=== PATIENT | female | born 1980 | race Caucasian/White ===

== ENCOUNTER → 2017-11-18 13:38 | Outpatient (CLI) | payer BC, SELFPAY ==
--- NOTE | 2017-11-18 13:39 | US_ITS ---
US transvaginal HISTORY: ITS.REASON: Left lower quadrant PAIN ORDERING PHYSICIAN: Bayron Mcintosh MD PATIENT AGE: 37 years Comparison: None FINDINGS: The uterus has an unremarkable appearance measuring 8 x 4 x 5 cm with a combined endometrial thickness of 7 mm. There are small nabothian cyst present. There is an IUD present within the endometrium in the fundal area with shadowing as expected. No uterine mass apparent. The left ovary is 2.4 x 1.4 cm contain a few small follicles. The right ovary is 3.8 x 1.7 cm also containing a few small follicles. No dominant cyst apparent. No cul-de-sac fluid. IMPRESSION: IUD in place. Small nabothian cyst and small bilateral ovarian follicles. Essentially unremarkable pelvic ultrasound
== END ==
PROVIDERS: Family Provider Nurse Practitioner; PCP Family Medicine; Visit Provider Family Medicine
DX: R10.31 Right lower quadrant pain (principal); N95.1 Menopausal and female climacteric states
CPT/HCPCS: 76830

== ENCOUNTER → 2017-12-08 08:38 | Outpatient (CLI) | payer BC, SELFPAY ==
--- NOTE | 2017-12-08 08:53 | CT_ITS ---
CT abdomen pelvis w con CLINICAL INDICATION: Right lower quadrant pain, right upper quadrant pain, right lower quadrant tenderness ITS.REASON: RT LOWER QUAD PAIN,PERIMENOPAUSAL ORDERING PHYSICIAN: Bayron Mcintosh MD PATIENT AGE: 37 years COMPARISON: 03/12/2016 TECHNIQUE: Axial images obtained with sagittal and coronal reformats. All CT scans at the facility use one or more dose reduction, viz: automated exposure control, ma/kV adjustment per patient size (including targeted exams where dose is matched to indication, i.e. head), or iterative reconstruction technique. PROCEDURE: Oral Contrast: None IV Contrast: 75 mL's of Isovue-370. FINDINGS: No acute finding in the lung bases. The liver, spleen, adrenal glands, and pancreas are unremarkable. There has been a prior cholecystectomy. No renal or ureteral calculi. No hydronephrosis or renal mass. There are a few small mesenteric lymph nodes which are nonspecific. There has been prior appendectomy. No intestinal obstruction or free air. No evidence of diverticulitis. There is an IUD in place. The cervix has a somewhat prominent appearance. Correlation with physical exam needed. No acute bony anomalies. IMPRESSION: 1. No acute abdominal or pelvic findings. 2. IUD in place. Mild prominence of the cervix. 3. Otherwise negative CT abdomen pelvis
== END ==
PROVIDERS: Family Provider Nurse Practitioner; PCP Family Medicine; Visit Provider Family Medicine
DX: R10.31 Right lower quadrant pain (principal); N95.1 Menopausal and female climacteric states
CPT/HCPCS: 74177; Q9967

== ENCOUNTER → 2018-04-05 16:53 | Outpatient (CLI) | payer BC, SELFPAY ==
[2018-04-05 19:19] LABS: Free Thyroxine Index 2.5 ug/dL (5.93-13.13); T4 (Thyroxine) 8.2 ug/dl (4.7-13.3); Thyroid Stimulating Hormone 2.34 uIU/ml (0.358-3.740); Triiodothryronine (T3) Uptake 31 % (31-39)
[2018-04-07 14:16] LABS: Triiodothyronine (T3) Free 2.8 pg/mL (2.0-4.4); Vitamin D 25 Hydroxy 34.2 ng/mL (30.0-100.0)
[2018-04-07 14:17] LABS: FSH 7.6 mIU/mL (.)
== END ==
PROVIDERS: Visit Provider Nurse Practitioner Obstetrics & Gynecology
DX: N92.0 Excessive and frequent menstruation with regular cycle (principal); N92.6 Irregular menstruation, unspecified; R10.2 Pelvic and perineal pain; R53.82 Chronic fatigue, unspecified
CPT/HCPCS: 36415; 82652; 82670; 83001; 83002; 84436; 84443; 84479; 84481

== ENCOUNTER → 2018-05-14 08:40 | Outpatient (CLI) | payer BC, SELFPAY ==
[2018-05-13 18:20] LABS: Basophils # 0.1 K/mm3 (0-0.2); Basophils % 0.8 % (0.1-2.0); Eosinophils # 0.2 K/mm3 (0.0-0.4); Eosinophils % 1.8 % (0.1-12.0); Hematocrit 42.3 % (37.0-47.0); Hemoglobin 13.4 g/dL (12.2-16.2); Lymphocytes % 27.5 % (10-50); Mean Corpuscular HGB Conc 31.7 g/dL (31.8-35.4); Mean Corpuscular Hemoglobin 28.6 pg (27.0-31.2); Mean Platelet Volume 7.4 fl (7.4-10.4); Monocytes # 0.4 K/mm3 (0.1-1.0); Monocytes % 4.1 % (1.7-9.3); Neutrophils # 7.2 K/mm3 (1.8-7.8); Neutrophils % 65.9 % (37.0-80.0); Platelet Count 387 K/mm3 (142-424); Red Cell Distribution Width 13.1 % (11.5-17.5); White Blood Count 10.9 K/mm3 (4.8-10.8)
[2018-05-13 19:13] LABS: HCG Qualitative, Serum Negative (Negative)
[2018-05-13 19:17] LABS: Anion Gap 15.2 mEq/L (5-15); Blood Urea Nitrogen 17 mg/dL (7-18); Calcium 9.1 mg/dL (8.5-10.1); Carbon Dioxide 24 mmol/L (21.0-32.0); Chloride 103 mmol/L (98-107); Creatinine,Serum 0.87 mg/dL (0.55-1.02); Estimated Glomerular Filt Rate 72 ml/min (>60); GFR (African American) 88 ML/MIN (>60); Glucose 98 mg/dL (74-106); Potassium 4.2 mmoL/L (3.5-5.1); Sodium 138 mmol/L (136-145)
== END ==
PROVIDERS: Visit Provider Nurse Practitioner Obstetrics & Gynecology
DX: Z01.818 Encounter for other preprocedural examination (principal)
CPT/HCPCS: 36415; 80048; 84703; 85025

== ENCOUNTER → 2018-05-31 16:33 | Outpatient (CLI) | payer BC, SELFPAY ==
[2018-06-02 07:46] LABS: Triiodothyronine (T3) Free 2.5 pg/mL (2.0-4.4)
[2018-06-03 07:46] LABS: Estradiol 147.1 pg/mL (.); FSH 4.5 mIU/mL (.); LH 11.1 mIU/mL (.)
== END ==
PROVIDERS: Visit Provider Nurse Practitioner Obstetrics & Gynecology
DX: E03.9 Hypothyroidism, unspecified (principal); N95.1 Menopausal and female climacteric states
CPT/HCPCS: 36415; 82670; 83001; 83002; 84481

== ENCOUNTER → 2018-12-07 16:59 | Outpatient (CLI) | payer BC, SELFPAY | PROVIDERS: Visit Provider Nurse Practitioner Obstetrics & Gynecology | DX: Z01.419 Encounter for gynecological examination (general) (routine) without abnormal findings (principal) | CPT/HCPCS: 87086; 87088; 87186 ==

== ENCOUNTER → 2019-10-21 10:13 | Outpatient (CLI) | payer BC, SELFPAY ==
[2019-10-21 10:53] LABS: Basophils # 0.1 K/mm3 (0-0.2); Eosinophils # 0.1 K/mm3 (0.0-0.4); Eosinophils % 1.7 % (0.1-12.0); Hematocrit 42.9 % (37.0-47.0); Hemoglobin 14.6 g/dL (12.2-16.2); Lymphocytes # 2.5 K/mm3 (0.7-4.5); Lymphocytes % 28.9 % (10-50); Mean Corpuscular Hemoglobin 30.1 pg (27.0-31.2); Mean Corpuscular Volume 88.4 fl (81-99); Mean Platelet Volume 7.2 fl (7.4-10.4); Monocytes # 0.3 K/mm3 (0.1-1.0); Monocytes % 3.6 % (1.7-9.3); Neutrophils # 5.6 K/mm3 (1.8-7.8); Neutrophils % 64.8 % (37.0-80.0); Platelet Count 400 K/mm3 (142-424); Red Blood Count 4.86 M/mm3 (4.20-5.40); Red Cell Distribution Width 12.9 % (11.5-17.5); White Blood Count 8.6 K/mm3 (4.8-10.8)
[2019-10-21 11:50] LABS: Alanine Aminotransferase 38 U/L (12-78); Albumin Level 4.7 g/dl (3.5-5.0); Albumin/Globulin Ratio 1.6 (1.1-1.8); Alkaline Phosphatase 81 U/L (38-126); Anion Gap 13.5 mEq/L (5-15); Aspartate Amino Transferase 34 U/L (14-36); Bilirubin,Total 0.4 mg/dl (0.2-1.3); Blood Urea Nitrogen 12 mg/dl (7-17); Calcium 9.4 mg/dl (8.4-10.2); Carbon Dioxide 26 mmol/L (22.0-30.0); Chloride 100 mmol/L (98-107); Chol/HDL Ratio 5.5 (1-3.5); Cholesterol 240 mg/dl (140-200); Estimated Glomerular Filt Rate 69 ml/min (>60); GFR (African American) 84 ML/MIN (>60); Globulin 2.9 g/dL (1.3-3.2); Glucose 94 mg/dl (74-100); HDL Cholesterol 44 mg/dl (40-60); Potassium 4.5 mmoL/L (3.5-5.1); Sodium 135 mmol/L (136-145); Total Protein,Serum 7.6 g/dl (6.3-8.2); Triglycerides 158 mg/dl (30-150); VLDL Cholesterol 32 mg/dL (0-40)
[2019-10-21 12:07] LABS: Free Thyroxine Index 3.1 ug/dL (5.93-13.13); T4 (Thyroxine) 10.3 ug/dl (5.53-11.0); Triiodothryronine (T3) Uptake 30 % (23.5-40.5)
[2019-10-21 12:21] LABS: Thyroid Stimulating Hormone 0.99 uIU/mL (0.465-4.68)
[2019-10-22 06:13] LABS: Estradiol 34.9 pg/mL (.); FSH 8.8 mIU/mL (.); LH 6.6 mIU/mL (.); Triiodothyronine (T3) Free 5.1 pg/mL (2.0-4.4)
[2019-10-27 11:15] LABS: 1,25 Dihydroxy Vitamin D 72 pg/mL (.); 1,25-Dihydroxy, Vitamin D-2 <10 pg/mL (.); 1,25-Dihydroxy, Vitamin D-3 72 pg/mL (.)
== END ==
PROVIDERS: Visit Provider Nurse Practitioner Obstetrics & Gynecology
DX: R63.5 Abnormal weight gain (principal); F48.8 Other specified nonpsychotic mental disorders; G47.00 Insomnia, unspecified
CPT/HCPCS: 36415; 80053; 80061; 82652; 82670; 83001; 83002; 84436; 84443; 84479; 84481; 85025

== ENCOUNTER → 2019-11-28 12:14 | Outpatient (CLI) | payer BC, SELFPAY | PROVIDERS: PCP Family Medicine; Referring Provider Nurse Practitioner; Visit Provider Family Medicine | DX: Z03.818 Encounter for observation for suspected exposure to other biological agents ruled out (principal) | CPT/HCPCS: U0003 ==

== ENCOUNTER → 2020-06-19 17:44 | Outpatient (CLI) | payer BC, SELFPAY ==
[2020-06-19 19:22] LABS: Free Thyroxine Index 2.6 ug/dL (5.93-13.13); T4 (Thyroxine) 8.4 ug/dl (5.53-11.0); Triiodothryronine (T3) Uptake 31 % (23.5-40.5)
[2020-06-19 19:36] LABS: Thyroid Stimulating Hormone 2.17 uIU/mL (0.465-4.68)
[2020-06-21 15:17] LABS: Estradiol 77.7 pg/mL (.); FSH 12.8 mIU/mL (.); LH 31.8 mIU/mL (.)
== END ==
PROVIDERS: Visit Provider Nurse Practitioner Obstetrics & Gynecology
DX: R53.82 Chronic fatigue, unspecified (principal); N95.1 Menopausal and female climacteric states
CPT/HCPCS: 36415; 82670; 83001; 83002; 84436; 84443; 84479

== ENCOUNTER → 2020-07-17 06:00 | Outpatient (CLI) | payer BC, SELFPAY ==
[2020-07-17 07:00] LABS: Basophils # 0.1 K/mm3 (0-0.2); Basophils % 0.9 % (0.1-2.0); Eosinophils # 0.2 K/mm3 (0.0-0.4); Eosinophils % 2.2 % (0.1-12.0); Hematocrit 42.6 % (37.0-47.0); Hemoglobin 13.9 g/dL (12.2-16.2); Lymphocytes # 2.5 K/mm3 (0.7-4.5); Lymphocytes % 23.9 % (10-50); Mean Corpuscular HGB Conc 32.6 g/dL (31.8-35.4); Mean Corpuscular Hemoglobin 28.9 pg (27.0-31.2); Mean Corpuscular Volume 88.5 fl (81-99); Mean Platelet Volume 7.3 fl (7.4-10.4); Monocytes # 0.6 K/mm3 (0.1-1.0); Monocytes % 5.3 % (1.7-9.3); Neutrophils # 7.1 K/mm3 (1.8-7.8); Neutrophils % 67.8 % (37.0-80.0); Platelet Count 401 K/mm3 (142-424); Red Blood Count 4.81 M/mm3 (4.20-5.40); Red Cell Distribution Width 12.8 % (11.5-17.5); White Blood Count 10.4 K/mm3 (4.8-10.8)
[2020-07-17 07:30] LABS: HCG Qualitative, Serum Negative (Negative)
[2020-07-17 07:32] LABS: Anion Gap 13.6 mEq/L (5-15); Blood Urea Nitrogen 15 mg/dl (7-17); Calcium 9.4 mg/dl (8.4-10.2); Carbon Dioxide 26 mmol/L (22.0-30.0); Chloride 102 mmol/L (98-107); Estimated Glomerular Filt Rate 79 ml/min (>60); GFR (African American) 96 ML/MIN (>60); Glucose 108 mg/dl (74-100); Potassium 4.6 mmoL/L (3.5-5.1); Sodium 137 mmol/L (136-145)
== END ==
PROVIDERS: PCP Family Medicine; Visit Provider Nurse Practitioner Obstetrics & Gynecology
DX: Z01.818 Encounter for other preprocedural examination (principal); Z20.822 Contact with and (suspected) exposure to COVID-19; R10.2 Pelvic and perineal pain; N92.0 Excessive and frequent menstruation with regular cycle
CPT/HCPCS: 36415; 80048; 84703; 85025; U0003

== ENCOUNTER 2020-07-18 06:10 | Observation (INO) | payer BC, SELFPAY ==
[2020-07-11 13:32] VITALS: BMI 32.2
[2020-07-18] VITALS (25 sets, daily range): BP systolic 108–143; BP diastolic 74–97; PULSE 78–126; RESP 12–18; TEMP 36.4–42.7; O2SAT 94–100
--- NOTE | 2020-07-18 09:46 | HMH.OPNOTE ---
Date of procedure: 07/18/20 Pre-op Diagnosis:: Pelvic pain, dyspareunia, severe dysmenorrhea, menorrhagia Post-op Diagnosis:: Pelvic pain, dyspareunia, severe dysmenorrhea, menorrhagia Procedure performed:: Laparoscopically assisted vaginal hysterectomy, bilateral salpingectomy Surgeon:: Joe Nelson MD Security Installation Sales Technician(s):: Eva Fernandez AUGER PRESS OPERATOR:: Other (Artur Guerrero) Anesthesia: GETA Estimated blood loss (mL): 250 Clinical Note:: She is a 40-year-old lady who complains of severe dysmenorrhea. She has disabling pain with her periods. She has painful intercourse as well. I suspect she has adenomyosis. After having discussed the risk and benefits we elected perform a laparoscopically assisted vaginal hysterectomy and bilateral salpingectomy. Operative findings:: She had an anteverted slightly bulky uterus. Tubes had previously been ligated. Ovaries look normal. At the left side of her uterus near the cornua there were some powder león possibly consistent with endometriosis. The ovaries appeared normal. The rest of the pelvis and upper abdomen appeared normal. Operative note:: She was taken to the operating room where general anesthesia was found be adequate. She was prepped and draped in normal sterile fashion in the semilithotomy position. A weighted speculum was placed in the vagina and the anterior lip of the cervix was grasped with a tenaculum. An acorn uterine manipulator was then placed within the cervical os. I then changed gloves. I injected 10 cc of 0.5% ropivacaine around the umbilicus and made a small incision within the umbilicus. I inserted a Veress needle into the abdominal cavity. The abdominal cavity was then insufflated with carbon dioxide gas to a pressure of 20 mmHg. I then inserted an 11 mm trocar under direct vision. I injected through and through the pubic hairline, made a small incision here and inserted a 5 mm trocar under direct vision. I identified the inferior epigastric arteries on the left side, went lateral to these and injected through and through. I then made a small incision and inserted an 11 mm trocar under direct vision. A similar 11 mm trocar was placed on the right side. The left round ligament was then grasped and cut through with harmonic scalpel. This was followed by opening up the peritoneum anteriorly to the midline. I then grasped the tube on the left side and cut through this. This is followed by cutting through the left utero-ovarian ligament. I used Harmonic scalpel on the coagulation mode. I then took down the posterior aspect of the broad ligament to the level of the uterosacral ligament. I then skeletonized the uterine arteries on the left side and placed hemoclips on these. Using the harmonic scalpel on coagulation mode adjacent to the cervix I then took down these uterine arteries. I then further freed up the bladder anteriorly and laterally on the left side. I then turned my attention to the right side where I grasped the right round ligament. The right tube was adherent to the right pelvic sidewall and using harmonic scalpel I was able to free this up. I then cut through the right round ligament. I then took down the anterior peritoneum to the midline joining up with the other side. I further dissected the bladder off. The posterior aspect of the right broad ligament was then taken down with harmonic scalpel. I skeletonized the uterine arteries on the right side. I applied hemoclips to the uterine arteries and staying adjacent to the cervix on the right side I took down the uterine arteries with harmonic scalpel on coagulation mode. I further freed up the bladder. We then assured hemostasis. I then grasped the distal end of the right tube and using harmonic scalpel I cut along the mesosalpinx. The tube was removed through the 11 mm trocar site. This was only performed on the patient's left side. After once again assuring hemostasis we then turned our attention
[2020-07-18 09:49] LABS: Microscopic,Cath URINE MICROSCOPIC (MICROSCOPIC)
[2020-07-18 10:01] LABS: Appearance,Urine/Cath CLEAR (Clear); Bilirubin,Cath Negative (Negative); Blood, Urine/Cath 1+ (Negative); Color,Urine/Cath YELLOW (Yellow); Glucose,Urine/Cath (UA) Negative (Negative); Ketones,Urine/Cath Negative (Negative); Leukocyte Esterase,Cath Negative (Negative); Nitrate,Cath Negative (Negative); PH,Urine/Cath 5.5 (5.0-8.5); Protein,Urine/Cath Negative (Negative); Specific Gravity, Urine/Cath >= 1.030 (1.005-1.030); Urobilinogen,Cath 0.2 EU/dl (0.2)
--- NOTE | 2020-07-18 10:06 | HMH.HP ---
*Admission Date: 07/18/20 *Chief complaint: Pelvic pain, dysmenorrhea, dyspareunia, menorrhagia *History of present illness: She is a 40-year-old lady who complains of severe pain with her periods. She is completely disabled by her pelvic pain during her periods. She also has pain with intercourse and chronic pelvic pain. Her uterus was exquisitely tender to palpate. I suspect she has adenomyosis. After discussing the risks and benefits of surgery she elected to have a laparoscopically assisted vaginal hysterectomy and bilateral salpingectomy. [facility] History I have reviewed the patient's past medical history: Yes Medical History: Reports:: Anxiety, Asthma, Gastroesophageal Reflux Disease(GERD), Hypertension Denies:: Cancer, Depression, Diabetes Mellitus Type 1, Diabetes Mellitus Type 2, Internal Pacemaker, MRSA, Seizures *Have you ever received a pneumonia vaccine?: No *Have you received a flu vaccine this season?: No Other Medical History: Denies: Blood Transfusion Reaction Other Surgeries: Yes: Appendectomy, Cholecystectomy, Dilation and Curettage, Tubal Ligation. No: Pacemaker Amputation: No Fractures: No - *Social History Last grade of school completed: Advanced degree Smoking Status: Never smoker Alcohol Intake: current Alcohol Intake Frequency:: holidays/special occasions only Substance Use Type: denies use *Occupational Status:: employed Housing: house Household Members: family *Travel in the last 8 weeks: None - Psychiatric History Pschychiatric History:: Reports:: Anxiety Denies:: Depression Family Hx:: Diabetes Review of Systems - Review of Systems Review of systems:: pertinent systems reviewed and negative unless documented below Meds Home Medications Medication Instructions Recorded Confirmed Type lisinopril 20 mg tablet 20 mg PO DAILY 30 Days #30 tab 04/05/18 07/11/20 History montelukast 10 mg tablet 10 mg PO DAILY 30 Days #30 tab 04/05/18 07/11/20 History esomeprazole magnesium 20 mg 20 mg PO DAILY 10/20/19 07/11/20 History capsule,delayed release hydrocodone 7.5 mg-acetaminophen 1 tab PO Q6H PRN #20 tab 07/06/20 07/11/20 Rx 325 mg tablet Ergocalciferol (Vitamin D2) 400 unit PO DAILY 07/11/20 07/11/20 History [Vitamin D2] Magnesium 30 mg PO DAILY 07/11/20 07/11/20 History Allergies Allergy/AdvReac Type Severity Reaction Status Date / Time diatrizoate sodium Allergy Severe passed out Verified 07/09/20 17:18 [From Hypaque] Exam Vital signs and Labs for Last 24 Hours: Temp Pulse Resp BP Pulse Ox 97.7 F 83 18 143/93 H 99 07/18/20 06:48 07/18/20 06:48 07/18/20 06:48 07/18/20 06:48 07/18/20 06:48 Laboratory Results - last 24 hr 07/18/20 08:50: Urine Color Yellow, Urine Appearance Clear, Urine pH 5.5, Ur Specific [place] >= 1.030, Urine Protein Negative, Urine Glucose (UA) Negative, Urine Ketones Negative, Urine Blood 1+, Urine Nitrate Negative, Urine Bilirubin Negative, Urine Urobilinogen 0.2, Ur Leukocyte Esterase Negative - Constitutional no acute distress - *Routine HEENT Exam Head: Present: normocephalic Eye: Present: EOMI, PERRL ENT: Present: mucous membranes moist - *Routine Neck Exam Present: supple, full ROM - *Routine Respiratory Exam Absent: accessory muscle use (good air entry bilaterally), wheezes, crackles - *Routine Cardiovascular Exam Present: RRR. Absent: murmur - *Routine Abdominal Exam Present: soft, normoactive bowel sounds. Absent: tenderness, rebound, guarding, mass - *Routine Rectal Exam Patient deferred: visual exam, digital exam - *Routine Exam Patient deferred: external exam, groin exam, perineal exam - *Routine Extremities Exam Present: full ROM. Absent: cyanosis, edema, calf tenderness - *Routine Skin Exam Present: intact (good color) - *Routine Neurological Exam Present: alert, oriented X3 - Routine Psychiatric Exam Present: normal affect Assessment and Plan (1) Pelvic pain Status: Acute C
[2020-07-18 10:16] LABS: Squamous Epithelial Ur./Cath Occasional #/hpf (0-5)
--- NOTE | 2020-07-18 10:30 | PC.NURSE ---
Report received from Hortencia RICHMOND.
--- NOTE | 2020-07-18 10:45 | PC.NURSE ---
Pt. arrived to room 280 via bed accompanied by 1 visitor and PACU staff x2.
--- NOTE | 2020-07-18 10:57 | HMH.PHAINT ---
MEDICATION RECONCILIATION COMPLETED ON PATIENT USING EXTERNAL FILL HISTORY FROM PHARMACY. -ANTONELLA ROBERTS, DEENAD
--- NOTE | 2020-07-18 12:49 | P.CONPHA_ITS ---
[facility] Pharmacy VTE Monitoring - Patient Demographics Admission date: 07/18/20 Report Date: 07/18/20 Time: 12:49 Allergies/Adverse Reactions: Patient Allergies diatrizoate sodium [From Hypaque] Allergy (Severe, Verified 07/09/20 17:18) passed out Height: 1.52 m Weight: 74.843 kg Patient Problems: Current Active Problems Pelvic pain (Acute) Dysmenorrhea (Acute) Dyspareunia (Acute) Menorrhagia (Acute) - Prophylaxis VTE Prophylaxis Ordered?: Yes Types of VTE Prophylaxis: IPCS Thigh High Location of Applied Device: Bilateral Lower Extremeties
--- NOTE | 2020-07-18 13:10 | P.PN_ITS ---
[facility] Anesthesia Checklist - Patient Identification Patient Identification: Arm Band - Structural Data Admitted From: Home Planned Operative Procedure/s: [facility] with bilat salpingectomy Consent for Planned Operative Procedure(s) Verified: Yes Verified Documents: Surgical Consent, History and Physical - NPO Status Verified Time NPO: 00:00 - Additional verifications Anesthesia Reactions: No Hx Blood Transfusions: No Blood Transfusion Reaction: No - Airway Assessment TMJ Mobility Assessed: Yes Dentition: Good Dentition - Neurological Assessment Level of Consciousness: Awake, Alert - Anesthesia Plan Anesthesia Risk discussed: Yes Anesthesia Plan: Verified ASA Class: II Anesthesia Type: General [facility] History Medical History: Reports:: Anxiety, Asthma, Gastroesophageal Reflux Disease(GERD), Hypertension Denies:: Cancer, Depression, Diabetes Mellitus Type 1, Diabetes Mellitus Type 2, Internal Pacemaker, MRSA, Seizures *Have you ever received a pneumonia vaccine?: No *Have you received a flu vaccine this season?: No Other Medical History: Denies: Blood Transfusion Reaction Anesthesia experience/problems:: None Other Surgeries: Yes: Appendectomy, Cholecystectomy, Dilation and Curettage, Tubal Ligation. No: Pacemaker Amputation: No Fractures: No - *Social History Last grade of school completed: Advanced degree Smoking Status: Never smoker Alcohol Intake: current Alcohol Intake Frequency:: holidays/special occasions only Substance Use Type: denies use *Occupational Status:: employed Housing: house Household Members: family *Travel in the last 8 weeks: None - Psychiatric History Pschychiatric History:: Reports:: Anxiety Denies:: Depression Family Hx:: Diabetes
--- NOTE | 2020-07-18 13:12 | HMH.ANESI ---
[facility] Anesthesia Record Part I Intake, IV Amount: 1,500 Estimated blood loss (mL): 250 Urine output (mL): 50 Blood Pressure: 134/91 SaO2: 94 Pulse Rate: 108 Respiratory Rate: 12 Temperature: 98.6 F Patient is:: Stable Stable to PACU at:: 09:48
[2020-07-18 15:47] LABS: Hematocrit 38.9 % (37.0-47.0); Hemoglobin 13.1 g/dL (12.2-16.2)
--- NOTE | 2020-07-18 18:25 | PC.NURSE ---
Pt. reports pain medication barely helping. nurse offered abd binder as pt. mentioned not wanting to take IV pain medication again. Pt. accepted. ABD binder placed. Pt. reports pain down to 3/10. pt. up to bathroom with standby assist. Pt. voided 250ml. and ambulated bakc to bed, tolerating well. Pt. denies further needs. will continue to monitor.
--- NOTE | 2020-07-18 19:50 | PC.NURSE ---
WITH ASSESSING PT HER B/P 142/96,P-113,R-18,SAT LEVEL WAS 89%,HAD PT TAKE SOME DEEP BREATHES AND HER SAT LEVEL SPIKE TO 94%,T- 98.5,PT ABD.TENDER TO TOUCH AND DISTENDED,PT DENIES PASSING ANY FLATUS ,DENIES ANY NAUSEA NOW.ASKED ABOUT SOME CEREAL AND MILK,SHE SAID MILK GIVES HER GAS,THIS WAS GIVEN.PT HAS A BINDER ON ABD TO HELP WITH PRESSURE AND DISCOMFORT,4 LAP SITES WITH THE ONE ON LEFT SIDE HAS A MOD.AMT SEROUSANG DRAINAGE,SHE ALSO ASKED IF COULD CALL SO WHEN SHE NEEDED SOMETHING FOR PAIN SHE COULD HAVE MAYBE LORTAB,PERCCET GIVE HER A H/A,TOLD HER I WOULD CALL HIM,SHE SAID SHE WAS ALRIGHT NOW PAIN ONLY A 4 ON SCALE OF 1-10
--- NOTE | 2020-07-18 20:05 | PC.NURSE ---
NOTIFIED OF PT ASKING IF SHE COULD HAVE LORTAB INSTEAD OF PERCOCET ,BECAUSE IT DOES NOT WORK FOR HER,GIVES HER A H/A,ORDERED HYDROCODONE 5MG PO EVERY 4 HOURS PRN.ASKED ABOUT SOME MYLICON FOR GAS AND HE ORDERS MYLICON 160MG PO FOR GAS .TOLD HIM ABOUT HER B/P AND PULSE 142/96,P-113.NO ORDERS FOR THIS,SAID SHE MAY NEED TO BE ON A BETA MARI-PRIMARY DOCTOR SHOULD ADDRESS THIS.NO OTHER ORDERS
--- NOTE | 2020-07-18 21:25 | PC.NURSE ---
AFTER HELPING PT TO BATHROOM WITH IV POLE,ASKED HER IF SHE THOUGHT SHE NEEDED THE LORTAB NOW AND SHE SAID NO SHE WOULD WAIT.ASIM.TORADOL BROUGHT PAIN TO TOLERABLE AMT.WAS A 6,NOW 4.PT REPORTED SHE WAS HUNGERY,SO CHICKEN NOODLE SOUP,CRACKERS,JELLO GIVEN.
[2020-07-19 03:00] VITALS: BP 114/67; PULSE 111; RESP 16; TEMP 36.8; O2SAT 97
--- NOTE | 2020-07-19 03:28 | PC.NURSE ---
PT WAS ASLEEP,BUT WAS EASILY AROUSED,ASIM.TORADOL GIVEN.PT REPORTS PAIN A 4 OUT OF A SCALE OF 0-10.B/P WAS 114/67,P-111,R-16,T-98.2,SAT LEVEL 97%.LUNGS CLEAR,RESP.EVEN AND UNLABORED.NO NEW DRAINAGE TO 4 LAP SITES,PT STILL HAS ABD.BINDER ON AND SAYS IT HAS HELPED.POSITIVE BOWEL SOUNDS X4 QUADS.VOIDING WITHOUT DIFF.DENIES PASSING FLATUS,WILL CONTINUE TO MONITOR
--- NOTE | 2020-07-19 06:27 | PC.NURSE ---
LAB AT BEDSIDE TO DRAW BLOOD FOR CBC AND BMP
[2020-07-19 06:48] LABS: Basophils % 0.2 % (0.1-2.0); Eosinophils % 0.2 % (0.1-12.0); Hematocrit 38.3 % (37.0-47.0); Hemoglobin 12.3 g/dL (12.2-16.2); Lymphocytes # 2.7 K/mm3 (0.7-4.5); Lymphocytes % 14.4 % (10-50); Mean Corpuscular Hemoglobin 28.7 pg (27.0-31.2); Mean Corpuscular Volume 89.7 fl (81-99); Mean Platelet Volume 7.4 fl (7.4-10.4); Monocytes % 5.4 % (1.7-9.3); Neutrophils # 14.8 K/mm3 (1.8-7.8); Neutrophils % 79.7 % (37.0-80.0); Platelet Count 377 K/mm3 (142-424); Red Blood Count 4.27 M/mm3 (4.20-5.40); Red Cell Distribution Width 12.9 % (11.5-17.5); White Blood Count 18.6 K/mm3 (4.8-10.8)
[2020-07-19 06:49] LABS: Chloride 109 mmol/L (98-107); Potassium 4.4 mmoL/L (3.5-5.1); Sodium 139 mmol/L (136-145)
[2020-07-19 06:52] LABS: Blood Urea Nitrogen 9 mg/dl (7-17); Creatinine Clearance Estimated 125 mL/min (50-200); Estimated Glomerular Filt Rate 92 ml/min (>60); GFR (African American) 112 ML/MIN (>60)
[2020-07-19 06:53] LABS: Anion Gap 9.4 mEq/L (5-15); Calcium 8.8 mg/dl (8.4-10.2); Carbon Dioxide 25 mmol/L (22.0-30.0); Glucose 108 mg/dl (74-100)
--- NOTE | 2020-07-19 06:58 | PC.NURSE ---
BREAKFAST TRAY SETUP.NO NEEDS OR CONCERNS VOICED
[2020-07-19 07:00] LABS: MANUAL DIFFERENTIAL MANUAL DIFFERENTIAL (MANUAL DIFF)
[2020-07-19 08:00] VITALS: PULSE 112; O2SAT 100
[2020-07-19 08:21] VITALS: BP 120/87; PULSE 108; PULSE 112; RESP 18; TEMP 37.2; O2SAT 99
--- NOTE | 2020-07-19 08:35 | HMH.DCSUM ---
General - General Admission date:: 07/18/20 Discharge date: 07/19/20 HPI HPI: She is a 40-year-old lady who complains of severe pain with her periods. She is completely disabled by her pelvic pain during her periods. She also has pain with intercourse and chronic pelvic pain. Her uterus was exquisitely tender to palpate. I suspect she has adenomyosis. After discussing the risks and benefits of surgery she elected to have a laparoscopically assisted vaginal hysterectomy and bilateral salpingectomy. Hospital Course Hospital Course: On July 19, 2019 when she underwent a laparoscopic-assisted vaginal hysterectomy and bilateral salpingectomy. She has done well postoperatively and has remained afebrile throughout her hospitalization. Her hemoglobin has stabilized. She is eating and drinking and ambulating. Her pain is well controlled with just Toradol and Tylenol. While hospitalized her blood pressure has been slightly elevated and she is slightly tachycardic with a heart rate of 110-120. I spoke with Dr. Mcintosh and he suggested we start Coreg 6.25 mg twice daily. We will send her home with this. She will follow up with Dr. Mcintosh in a week's time. She will continue with her lisinopril. She will be discharged home today to follow-up with me in approximately 2 weeks time. She will continue with her home medications. She will start her new medication. She is not taking any narcotics and she does have a prescription of hydrocodone that I gave her a couple of weeks ago. She will be given a prescription for the Coreg as well as Toradol. She will take Tylenol as well. She was given the usual instructions with respect to limiting her activity, driving and sexual activity. Her condition on discharge is stable and improved. Objective Vital signs: Temp Pulse Resp BP Pulse Ox 99.0 F 108 H 18 120/87 99 07/19/20 08:21 07/19/20 08:21 07/19/20 08:21 07/19/20 08:21 07/19/20 08:21 no acute distress - *Routine HEENT Exam Head: Present: normocephalic Eye: Present: EOMI, PERRL ENT: Present: mucous membranes moist - *Routine Neck Exam Present: supple - *Routine Respiratory Exam Present: CTA bilaterally - *Routine Cardiovascular Exam Present: RRR - *Routine Abdominal Exam Present: soft, normoactive bowel sounds. Absent: tenderness Comments: Her incisions are clean and dry. - *Routine Extremities Exam Absent: cyanosis, clubbing, edema - *Routine Skin Exam Present: warm. Absent: rash - Detailed Eye Exam Eyelids: Bilateral normal inspection Results Labs on day of discharge: Labs from last 24 hours 07/19/20 07/19/20 07/18/20 06:31 06:31 15:40 WBC 18.6 H D RBC 4.27 Hgb 12.3 13.1 Hct 38.3 38.9 MCV 89.7 MCH 28.7 MCHC 32.0 RDW 12.9 Plt Count 377 MPV 7.4 Neut % (Auto) 79.7 Lymph % (Auto) 14.4 [place] % (Auto) 5.4 Eos % (Auto) 0.2 Baso % (Auto) 0.2 Neut # (Auto) 14.8 H Lymph # (Auto) 2.7 [place] # (Auto) 1.0 Eos # (Auto) 0.0 Baso # (Auto) 0.0 Sodium 139 Potassium 4.4 Chloride 109 H Carbon Dioxide 25 Anion Gap 9.4 BUN 9 D Creatinine 0.70 Estimated Creat Clear 125 Estimated GFR 92 Est GFR ( Amer) 112 Glucose 108 H Calcium 8.8 Urine Color Urine Appearance Urine pH Ur Specific [employer] Urine Protein Urine Glucose (UA) Urine Ketones Urine Blood Urine Nitrate Urine Bilirubin Urine Urobilinogen Ur Leukocyte Esterase Urine RBC Urine WBC Ur Squamous Epith Cells Urine Bacteria 07/18/20 08:50 WBC RBC Hgb Hct MCV MCH MCHC RDW Plt Count MPV Neut % (Auto) Lymph % (Auto) [place] % (Auto) Eos % (Auto) Baso % (Auto) Neut # (Auto) Lymph # (Auto) [place] # (Auto) Eos # (Auto) Baso # (Auto) Sodium Potassium Chloride Carbon Dioxide Anion Gap BUN Creatinine Estimated Creat Clear Estimat
[2020-07-19 09:17] LABS: Lymphocytes % 16 % (10-50); Monocytes % 6 % (2-9); Neutrophils % 78 % (42-76); Platelet Estimate Normal; RBC Morphology Normal; Total Cells Counted 100
[2020-07-19 10:00] VITALS: PULSE 89
--- NOTE | 2020-07-19 10:25 | PC.NURSE ---
Discharge education provided. Questions encouraged and answered. Pt. v/u. IV removed from RFA 2x2 with [address]. Nurse educated pt. on coban and bleeding. Pt. v/u.
--- NOTE | 2020-07-19 10:30 | PC.NURSE ---
Pt. left unit ambulatory per pt. request. Pt. accompanied by friend and staff x1.
--- NOTE | 2020-07-19 13:16 | HMH.ANESII ---
[facility] Anesthesia Record Part II Discharge Time: 10:08 Destination: floor PACU nurse assessment reviewed?: Yes Patient Condition:: Good Anesthesia Complications:: None Swallowing reflex intact?: Yes Cyanosis?: No Blood Pressure: 129/85 Pulse Rate: 86 Temperature: 98.3 F Mental Status: Alert & Oriented Pain level:: 0 Nausea and/or vomitting:: None Intake, IV Amount: 1,500
[2020-07-19 13:19] VITALS: BP 129/85; PULSE 86; TEMP 36.8
== END 2020-07-19 10:30 | disposition home or self-care (01) ==
LOC: OB 06:11
PROVIDERS: Admitting Provider Nurse Practitioner Obstetrics & Gynecology; PCP Family Medicine; Visit Provider Nurse Practitioner Obstetrics & Gynecology
PROC: 0UT9FZZ Resection of Uterus, Via Natural or Artificial Opening With Percutaneous Endoscopic Assistance (ICD-10-PCS; CPT 58552; principal; 2020-07-18 07:30)
DX: N94.6 Dysmenorrhea, unspecified (principal); R10.2 Pelvic and perineal pain; N94.10 Unspecified dyspareunia; N92.0 Excessive and frequent menstruation with regular cycle; Z79.899 Other long term (current) drug therapy
CPT/HCPCS: 58552; 36415; 80048; 81001; 85007; 85014; 85018; 85025; 96374; G0378; J2405; J2710

== ENCOUNTER 2020-12-23 10:39 | Emergency (ER) | payer BC, SELFPAY ==
[2020-12-23 10:50] VITALS: BP 130/90; PULSE 82; RESP 18; TEMP 37; O2SAT 98; BMI 29.5
--- NOTE | 2020-12-23 11:15 | HMH.EDUTC ---
[facility] Disposition Clinical Impression: COVID-19 virus test result unknown, Upper respiratory infection, viral Disposition: Home, Self-Care Condition on Discharge: Good Instructions: DI for COVID-19 (Suspected or Confirmed ), COVID-19: Protecting Yourself When You're at High Risk Additional Instructions: covid swab was sent to lab, call later today for results. self isolate until test results are known to be negative No sign of a bacterial infection. Likely viral. Viruses can take 7-14 days to run their course. Nasal saline and bulb syringe or nose Jaylene to remove nasal drainage to help with nasal congestion. Hard to eat, drink, sleep with nasal congestion so important to keep this cleaned out. Monitor temp. Tylenol or Motrin as needed for pain or fever Encourage fluids, water, Gatorade, Powerade, Pedialyte if infant/toddler/child Warm salt water gargles Warm fluids Sore throat lozenges Sleep elevated Humidifier/vaporizer Follow-up immediately for new or worsening symptoms or no noticeable improvement over the next 48-72 hours. Referrals: Bayron Mcintosh MD [Primary Care Provider] - Time of Disposition: 11:20 Medical Decision Making - Simón Inquiry Pt receiving controlled substance: No Vital Signs: 12/23/20 10:50 Temperature 98.6 F Temperature Source Oral Pulse Rate [Right Brachial] 82 Respiratory Rate 18 Blood Pressure [Right Arm] 130/90 Blood Pressure Mean [Right Arm] 103 Blood Pressure Source [Right Arm] Automatic Cuff Blood Pressure Position [Right Arm] Sitting 02 Sat by Pulse Oximetry 98 Oxygen Delivery Method Room Air Orders (Tests/Meds): ORDERS Category Date Time Status Covid-19 Nasal PCR ([facility]) Routine Lab 12/23/20 10:41 Ordered [facility] HPI - General Chief complaint: Urgent [facility] Stated complaint: covid symtoms Time Seen by Provider: 12/23/20 11:15 Mode of Arrival: Ambulatory Source of Information: Patient Limitations: No Limitations Description of Symptoms (Recalled from Triage Doc. by RN): COVID TEST D/T EXPOSURE. C/O SORE THROAT, COUGH, AND LOSS OF TASTE AND SMELL SINCE LAST NIGHT. HEENT Symptoms (Recalled from RN notes): Yes Resp Symptoms (Recalled from RN notes): Yes Skin Symptoms (Recalled from RN notes): No MS Symptoms (Recalled from RN notes): No Functional Status (Recalled from RN notes): WNL - History of Present Illness Provider Complaint: 40 yr old female presents for covid test. positive for covid. pt states sore throat,cough,and loss of taste ans smell since last pm. - Related Data Home Medications Medication Instructions Recorded Confirmed Ergocalciferol (Vitamin D2) 400 unit PO DAILY 07/11/20 08/27/20 [Vitamin D2] Magnesium 30 mg PO DAILY 07/11/20 08/27/20 Esomeprazole Magnesium [Nexium] 40 mg PO DAILY 07/18/20 08/27/20 Hydrocodone/Acetaminophen 1 tab PO Q6HP PRN 07/18/20 08/27/20 [Hydrocodone-Acetamin 7.5-325] Montelukast Sodium [Singulair 10mg 10 mg PO PM 07/18/20 08/27/20 tablet] lisinopriL [Zestril 20mg tab] 20 mg PO DAILY 07/18/20 08/27/20 carvedilol 12.5 mg tablet 12.5 mg PO tab 08/27/20 08/27/20 Previous Rx's Medication Instructions Recorded Ketorolac Tromethamine [Toradol 10 mg PO Q6H 5 Days #20 tab 07/19/20 10mg tablet] Allergies Allergy/AdvReac Type Severity Reaction Status Date / Time diatrizoate sodium Allergy Severe passed out Verified 08/02/20 10:27 [From Hypaque] - Worker's Comp Is this a Worker's Comp case?: No [facility] History - Hepatitis A Screen Drug use history?: No High risk sexual behaviors?: No History of sexually transmitted infection?: No Currently employed?: No Childcare worker?: No Do you have indoor plumbing?: Yes Do you have electricity?: Yes Attestation statement:: This patient has been screened for Hepatitis A risk factors. I have reviewed the patient's past medical history: Yes Medical History: Reports:: Anxiety, Asthma, Gastroesophageal Reflux Disease(
[2020-12-23 11:26] VITALS: BP 130/90; PULSE 82; RESP 18; TEMP 37; O2SAT 98
== END 2020-12-23 11:27 | disposition home or self-care (01) ==
PROVIDERS: Emergency Provider Nurse Practitioner Family; PCP Family Medicine
DX: U07.1 COVID-19 (principal)
CPT/HCPCS: 99202; G0463; U0003

== ENCOUNTER 2021-05-13 09:24 | Emergency (ER) | payer BC, SELFPAY ==
[2021-05-13 11:00] VITALS: BP 129/85; PULSE 100; RESP 16; TEMP 36.8; O2SAT 98; BMI 31.8
[2021-05-13 11:28] VITALS: BP 129/85; PULSE 100; RESP 18; TEMP 36.8
== END 2021-05-13 11:30 | disposition left against medical advice (07) ==
PROVIDERS: Emergency Provider Nurse Practitioner Family; PCP Family Medicine
DX: Z53.21 Procedure and treatment not carried out due to patient leaving prior to being seen by health care provider (principal)
CPT/HCPCS: C9803; U0003; U0005

== ENCOUNTER → 2021-09-13 08:24 | Outpatient (CLI) | payer BC, SELFPAY ==
--- NOTE | 2021-09-13 08:24 | MM_ITS ---
PROCEDURE INFORMATION: Exam: MG Bilateral Screening 3D Mammography Exam date and time: 09/13/2021 9:57 AM Age: 41 years old Clinical indication: Screening examination; Additional info: Baseline routine screening mammogram TECHNIQUE: Imaging protocol: Bilateral Screening tomosynthesis and 2D mammography including computer-aided detection (CAD) when performed. COMPARISON: No relevant prior studies available. FINDINGS: MAMMOGRAPHY: Breast composition: There are scattered areas of fibroglandular density. Mass: No suspicious masses. Architectural distortion: No suspicious distortion. Calcifications: No suspicious calcifications. Asymmetric density: None. Skin thickening: None. Axillary adenopathy: None. IMPRESSION: No mammographic evidence of malignancy. Annual screening is recommended unless otherwise clinically indicated. ASSESSMENT: BI-RADS Category 1: Negative
== END ==
PROVIDERS: PCP Family Medicine; Visit Provider Nurse Practitioner Obstetrics & Gynecology
DX: Z12.31 Encounter for screening mammogram for malignant neoplasm of breast (principal)
CPT/HCPCS: 77063; 77067

== ENCOUNTER 2023-11-04 10:01 | Outpatient (CLI) | payer BC, SELFPAY ==
--- NOTE | 2023-11-04 10:09 | MM_ITS ---
PROCEDURE INFORMATION: Exam: MG Bilateral Screening 3D Mammography Exam date and time: 11/04/2023 9:54 AM Age: 43 years old Clinical indication: Screening mammogram TECHNIQUE: Imaging protocol: Bilateral Screening tomosynthesis and 2D mammography including computer-aided detection (CAD) when performed. COMPARISON: MG MM DIG SCREENING MAMM BI W/CAD 09/13/2021 9:57 AM FINDINGS: MAMMOGRAPHY: Breast composition: There are scattered areas of fibroglandular density. Mass: None. Architectural distortion: No new or suspicious architectural distortion. Calcifications: No new or suspicious calcifications are present Asymmetric density: No new or suspicious asymmetric density is present Skin thickening: None. Axillary adenopathy: None. IMPRESSION: No mammographic evidence of malignancy. Recommend annual screening mammography unless otherwise clinically indicated. ASSESSMENT: BI-RADS category 1: Negative.
[2023-11-04 11:07] LABS: Alanine Aminotransferase 32 U/L (12-78); Albumin Level 4.2 g/dl (3.5-5.0); Albumin/Globulin Ratio 1.6 (1.1-1.8); Alkaline Phosphatase 52 U/L (38-126); Anion Gap 10.9 mEq/L (5-15); Aspartate Amino Transferase 26 U/L (14-36); Bilirubin,Total 0.4 mg/dl (0.2-1.3); Blood Urea Nitrogen 12 mg/dl (7-17); Calcium 9.2 mg/dl (8.4-10.2); Carbon Dioxide 30 mmol/L (22.0-30.0); Chloride 100 mmol/L (98-107); Estimated Glomerular Filt Rate 91 ml/min (>60); GFR (African American) 110 ML/MIN (>60); Globulin 2.6 g/dL (1.3-3.2); Glucose 104 mg/dl (74-100); Potassium 3.9 mmoL/L (3.5-5.1); Sodium 137 mmol/L (136-145); Total Protein,Serum 6.8 g/dl (6.3-8.2)
== END 2023-11-04 23:59 | disposition home or self-care (01) ==
LOC: RAD 10:02
PROVIDERS: PCP Family Medicine; Visit Provider Nurse Practitioner Obstetrics & Gynecology
DX: Z12.31 Encounter for screening mammogram for malignant neoplasm of breast (principal); I10 Essential (primary) hypertension; Z13.220 Encounter for screening for lipoid disorders; Z13.1 Encounter for screening for diabetes mellitus
CPT/HCPCS: 36415; 77063; 77067; 80053

== ENCOUNTER 2023-11-04 12:18 | Outpatient (CLI) | payer BC, SELFPAY | END 2023-11-05 23:59 | disposition home or self-care (01) | PROVIDERS: PCP Family Medicine; Visit Provider Nurse Practitioner Obstetrics & Gynecology | DX: R32 Unspecified urinary incontinence (principal) | CPT/HCPCS: 87086 ==

== ENCOUNTER 2023-11-12 09:30 | Outpatient (CLI) | payer BC, SELFPAY ==
[2023-11-12 10:24] LABS: Basophils # 0.1 K/mm3 (0-0.2); Eosinophils # 0.2 K/mm3 (0.0-0.4); Eosinophils % 1.9 % (0.1-12.0); Hematocrit 43.6 % (37.0-47.0); Hemoglobin 14.4 g/dL (12.2-16.2); Lymphocytes # 2.4 K/mm3 (0.7-4.5); Lymphocytes % 26.3 % (10-50); Mean Corpuscular Hemoglobin 29.7 pg (27.0-31.2); Mean Corpuscular Volume 90.1 fl (81-99); Mean Platelet Volume 7.9 fl (7.4-10.4); Monocytes # 0.4 K/mm3 (0.1-1.0); Monocytes % 4.6 % (1.7-9.3); Neutrophils # 6.1 K/mm3 (1.8-7.8); Neutrophils % 66.2 % (37.0-80.0); Platelet Count 329 K/mm3 (142-424); Red Blood Count 4.84 M/mm3 (4.20-5.40); Red Cell Distribution Width 13.4 % (11.5-17.5); White Blood Count 9.2 K/mm3 (4.8-10.8)
[2023-11-12 10:26] LABS: Chloride 107 mmol/L (98-107); Sodium 140 mmol/L (136-145)
[2023-11-12 10:27] LABS: Potassium 4.6 mmoL/L (3.5-5.1)
[2023-11-12 10:29] LABS: Alanine Aminotransferase 24 U/L (12-78); Alkaline Phosphatase 55 U/L (38-126); Aspartate Amino Transferase 19 U/L (14-36); Bilirubin,Total 0.3 mg/dl (0.2-1.3); Blood Urea Nitrogen 16 mg/dl (7-17); Estimated Glomerular Filt Rate 91 ml/min (>60); GFR (African American) 110 ML/MIN (>60)
[2023-11-12 10:30] LABS: Albumin/Globulin Ratio 1.3 (1.1-1.8); Anion Gap 10.6 mEq/L (5-15); Calcium 9.2 mg/dl (8.4-10.2); Carbon Dioxide 27 mmol/L (22.0-30.0); Glucose 106 mg/dl (74-100)
[2023-11-12 10:47] LABS: HCG,Quantitative < 2 mIU/ml (0-5.42)
== END 2023-11-12 23:59 | disposition home or self-care (01) ==
LOC: LAB 09:32
PROVIDERS: PCP Family Medicine; Visit Provider Nurse Practitioner Obstetrics & Gynecology
DX: N39.46 Mixed incontinence (principal)
CPT/HCPCS: 36415; 80053; 84702; 85025

== ENCOUNTER 2023-11-17 06:00 | Day surgery (SDC) | payer BC, SELFPAY ==
[2023-11-16 16:56] VITALS: BMI 31.2
[2023-11-17] VITALS (13 sets, daily range): BP systolic 122–147; BP diastolic 62–103; PULSE 81–99; RESP 12–18; TEMP 36.3–36.8; O2SAT 91–100
[2023-11-17] MEDS: 0.9 % SODIUM CHLORIDE 1000ML 1,000 ML 25 ML IV (06:13)
--- NOTE | 2023-11-17 06:57 | P.PNANES_ITS ---
[facility] Disclaimer: The information contained in this section may have been updated after the patient was seen, as this information can be updated by other users. Medical History Seasonal allergies Hypertension GERD (gastroesophageal reflux disease) Anxiety Dysmenorrhea Surgical History History of endometrial ablation History of cholecystectomy Hx of appendectomy History of LAVH Family History Other No significant family history Social History (Updated 11/17/23 @ 06:16 by Laura Valladares RN) Smoking Status: Never smoker second hand exposure: No alcohol intake: current alcohol intake frequency: holidays/special occasions only substance use type: denies use current occupational status: employed Travel in the last 8 weeks: None household members: family housing: house current occupation: teacher current occupational exposures/hazards: No caffeine: Yes [facility] Anesthesia Checklist Patient Identification Patient Identification: Arm Band and Family Structural Data Admitted From: Home Planned Operative Procedure/s: TVT Consent for Planned Operative Procedure(s) Verified: Yes Verified Documents: Surgical Consent and History and Physical NPO Status Verified Time NPO: 00:00 Additional verifications Patient : No Anesthesia Reactions: No Hx Blood Transfusions: No Blood Transfusion Reaction: No Cephalosporin Allergy: No Previous Colonoscopy: No Airway Assessment Mallampati Score:: Class I C-Spine Mobility Assessed: Yes TMJ Mobility Assessed: Yes Dentition: Good Dentition Neurological Assessment Level of Consciousness: Awake, Alert, Appropriate and Follows Commands Hx Seizures: No Numbness or tingling in extremities: No Anesthesia Plan Anesthesia Risk discussed: Yes ASA Class: II Anesthesia Type: General Preoperative Comments Pre-Operative Comments: Hypertension, treated. Takes Nexium for reflux.
[2023-11-17] MEDS: CEFAZOLIN SODIUM 2 GM in 0.9 % SODIUM CHLORIDE 100 ML IV (07:22)
[2023-11-17] MEDS: LIDOCAINE 1% W/EPI 1:100,000 20ML VIAL 20 ML (07:47)
[2023-11-17] MEDS: ROPIVACAINE 0.5% 30ML VIAL 450 MG (07:47)
--- NOTE | 2023-11-17 08:23 | EXP.ANES.I ---
[facility] Anesthesia Record Part I Anesthesia Record I Intake, IV Amount: 500 Hydration: Adequate Estimated blood loss (mL): 100 Urine output (mL): 0 Blood Products used (#): none Blood Pressure: 143/100 SaO2: 94 Pulse Rate: 99 Airway Patency: Patent Respiratory Rate: 12 Temperature: 97.8 F Patient is:: Drowsy and Stable Stable to PACU at:: 08:17
--- NOTE | 2023-11-17 08:40 | EXP.OP.NOTE ---
Date of procedure: 11/17/23 Pre-op Diagnosis:: Genuine stress urinary incontinence Post-op Diagnosis:: Genuine stress urinary incontinence Procedure performed:: Tension-free vaginal tape Surgeon:: Joe Nelson MD MANAGER INTERVENTIONAL:: Josh Parikh Anesthesia: LMA Estimated blood loss (mL): 100 Clinical Note:: She is a 43-year-old lady whose had a previous hysterectomy. She complains of loss of urine with laughing coughing sneezing. We did urodynamics in my office and this confirmed her diagnosis of stress incontinence. As result of that she is offered tension-free vaginal tape. Operative findings:: She had a grade 1-2 cystocele. The vaginal vault was reasonably well supported. The bladder looked normal. Both ureters were seen and appeared normal. Operative note:: She was taken to the operating room where LMA anesthesia was found be adequate. She was prepped and draped in normal sterile fashion in the lithotomy position. The bladder was drained. Weighted speculum was placed in the vagina and I injected 20 cc of 1% Xylocaine with epinephrine along the urethra and under the pubic rami bilaterally. I then injected 60 cc of 0.5% ropivacaine along the trocar paths in the space of Retzius with a spinal needle from above. I then grasped the vaginal mucosa with an Allis clamp just below the urethra and then again approximately 3 cm along. Made an incision with knife. I then grasped the edges of the vaginal mucosa using Metzenbaum scissors dissected out laterally to each pubic rami. I then inserted a catheter in the bladder with an obturator. I pulled it to its ipsilateral side and placed the left side of the tape. I went under the pubic rami, through the urogenital diaphragm and through the space of Retzius. I then passed the catheter out through the skin. Then inspected the bladder with a 70 degree cystoscope. There is no evidence of tape within the bladder. I then pulled the tape through to the midline. The bladder was then drained and once again the obturator was placed within the urethra and pulled to its ipsilateral side. I then placed the right side of the tape in the same fashion as the left side. Once again the bladder was inspected with a 70 degree cystoscope. There was no evidence of tape within the bladder. I then placed a packing forcep under the tape and removed his outer sheath. Once again I tested for attention by pushing on the bladder from above. There was no evidence of leakage. The tape was loose. I then cut the tape off at the level of the skin and pulled out the skin. The vaginal mucosa was then closed using interrupted 2-0 Vicryl suture in a mattress fashion. The suprapubic incisions were closed with Dermabond. Sterile dressings were applied. The bladder was then drained. She tolerated procedure well and was taken to the recovery room in excellent condition. All sponge, instrument and needle counts were correct. The estimated blood loss was 150 cc. Condition: stable Disposition: PACU Specimens:: None Complications:: None
--- NOTE | 2023-11-17 09:17 | EXP.ANES.II ---
[facility] Anesthesia Record Part II Anesthesia Record Part II Discharge Time: 08:47 Destination: Surgical Day Care (OP Surgery) PACU nurse assessment reviewed?: Yes Patient Condition:: Good Anesthesia Complications:: None Swallowing reflex intact?: Yes Airway Patency: Patent Cyanosis?: No Blood Pressure: 137/84 SaO2: 98 Respiratory Rate: 17 Pulse Rate: 86 Temperature: 98.2 F Mental Status: Alert & Oriented Pain level:: 0 Nausea and/or vomitting:: None Intake, IV Amount: 0 Hydration: Adequate
--- NOTE | 2023-11-17 09:39 | SUR.PHASEII ---
Pt. up to bathroom to attempt to void. Unable to void. 30 ml of blood noted in hat after void attempt. Provided pt with water and juice. Will attempt again in 20 minutes and check PVR. If unable to void or PVR greater than 100 ml, will insert stahl catheter per MD.
--- NOTE | 2023-11-17 10:25 | SUR.PHASEII ---
Pt. voided 150 ml. PVR 60 ml on bladder scanner. Discussed to call MD or come to ED if unable to void after DC.
== END 2023-11-17 10:35 | disposition home or self-care (01) ==
PROVIDERS: PCP Family Medicine; Visit Provider Nurse Practitioner Obstetrics & Gynecology
PROC: (CPT 57288; principal; 2023-11-17 07:30)
DX: N39.3 Stress incontinence (female) (male) (principal)
CPT/HCPCS: 57288; 96374; C1771; J0690; J1100; J2250; J2405; J3010

== ENCOUNTER 2025-01-23 06:00 | Day surgery (SDC) | payer BC, SELFPAY ==
[2025-01-17 12:22] VITALS: BMI 28.9
--- NOTE | 2025-01-19 06:43 | EXP.HP ---
History of Present Illness *Admission Date: 01/23/25 *History of present illness: Mrs. Milner is a 45-year-old female who is here for initial screening colonoscopy. The examination is deemed medically necessary for screening colonoscopy. The patient has been seen, interviewed and examined prior to the procedure by both myself and the anesthesia provider. [facility] Disclaimer: The information contained in this section may have been updated after the patient was seen, as this information can be updated by other users. Medical History Seasonal allergies Hypertension GERD (gastroesophageal reflux disease) Anxiety Dysmenorrhea Surgical History S/P partial hysterectomy History of bladder surgery History of endometrial ablation History of cholecystectomy Hx of appendectomy History of LAVH Family History Other No significant family history Social History (Updated 01/23/25 @ 06:22 by Clemencia Chavez RN) Smoking Status: Never smoker second hand exposure: No alcohol intake: current alcohol intake frequency: holidays/special occasions only substance use type: denies use current occupational status: employed Travel in the last 8 weeks?: None household members: family housing: house current occupation: teacher current occupational exposures/hazards: No caffeine: Yes Have you lived/traveled outside [place] in past 30 days?: No Contact w/someone who lives/traveled outside US past 30 days?: No Exposure to someone with infectious disease in past 14 days?: No Do you have a fever (greater than 100.4 F or 38 C)?: No Have you tested positive for COVID-19?: No Exposed to someone with COVID-19 in past 14 days?: No Do you have a sore throat?: No Do you have a cough?: No Do you have any weakness?: No Are you experiencing any nausea/vomitting?: No Do you have any diarrhea?: No Are you experiencing any unusual bleeding?: No Do you have any muscle aches/pain?: No Do you have any abdominal pain?: No Are you experiencing loss of taste or smell?: No Other Medical History Have you received the Flu Vaccine for this season: No Have you received the Pneumonia Vaccine: No Review of Systems Review of Systems Review of systems (narrative): Negative *Cardiovascular Comments: Negative *Gastrointestinal Comments: Negative *Genitourinary Comments: Negative *Musculoskeletal Comments: Negative *Neurologic Comments: Negative Meds Home Medications and Allergies Home Medications ?Medication ?Instructions ?Recorded ?Confirmed ?Type esomeprazole magnesium 40 mg 40 mg PO DAILY GERD 07/18/20 01/23/25 History capsule,delayed release (Nexium) montelukast 10 mg tablet 10 mg PO PM Allergy symptoms 07/18/20 01/23/25 History lisinopril 20 1 tab PO DAILY 01/27/23 01/23/25 History mg-hydrochlorothiazide 25 mg tablet (Zestoretic) albuterol sulfate 90 mcg/actuation 1 mcg inhalation NEEDED PRN SOA 10/21/23 01/23/25 History aerosol inhaler dicyclomine 10 mg capsule 10 mg PO NEEDED PRN * 10/21/23 01/23/25 History escitalopram oxalate 20 mg tablet 10 mg PO DAILY 10/21/23 01/23/25 History tamsulosin 0.4 mg capsule 0.4 mg PO NEEDED PRN Urinary 11/25/23 01/23/25 History Retention sod picosulf 10 mg-magnes 3.5 175 ml PO DAILY Bowel Prep 2 doses 01/09/25 01/23/25 Rx gram-citric 12 gram/175 mL oral #350 mL solution (Clenpiq) venlafaxine 25 mg tablet 25 mg PO DAILY 01/17/25 01/17/25 History New Prescriptions to Start Prescriptions: Allergies Allergy/AdvReac Type Severity Reaction Status Date / Time diatrizoate sodium (From Allergy Severe passed out Verified 01/23/25 06:29 Hypaque) adhesive tape AdvReac Other Verified 01/23/25 06:29 Exam Data for Last 24 hours I & O for Last 24 hours: Intake & Output 01/16/25 01/17/25 01/18/25 01/19/25 23:59 23:59 23:59 23:59 Weight 148 lb *Routine HEENT Exam Head: Present normocephalic Eye: Present EOMI and PERRL ENT: Present mucous membranes moist *Routine Neck Exam Neck: Present supple *Routine Respiratory Exam Respiratory: Present CTA bilaterally *Routine Cardiovascular Exam Cardiovascular: Present RRR *Routine Abdominal Exam Abdominal: Present soft and normoactive bowel sounds; Absent tenderness *Routine Rectal Exam Rectal:: deferred *Routine Genitalia Exam Genitalia:: deferred *Routine Extremities Exam Extremities: Absent cyanosis, clubbing or edema *Routine Skin Exam Skin: Present warm; Absent rash *Routine Neurological Exam Neurological: Present alert and oriented X3 Assessment and Plan *Assessment and plan (1) Screening for colon cancer: Status: Acute Category: Medical Code(s): Z12.11 - Encounter for screening for malignant neoplasm of colon Plan A/P: 1. Screening for colon cancer is the preprocedural diagnosis. The patient will be anesthetized/sedated using MAC sedation. The patient has been seen and examined. Cardiac and lung assessment prior to the examination is stable. Proceed with planned screening colonoscopy.
[2025-01-23 06:16] VITALS: BMI 28.9
[2025-01-23] MEDS: LACTATED RINGERS 1000ML 1,000 ML 50 ML IV (06:20)
[2025-01-23 06:21] VITALS: BP 119/87; PULSE 84; RESP 16; TEMP 36.1; O2SAT 100
--- NOTE | 2025-01-23 06:41 | P.PCN_ITS ---
[facility] Procedure Note Date: 01/23/25 Time: 07:51 Procedure Note:: Colonoscopy Procedure Report: Colonoscopy with cold biopsies and monopolar ablation/coagulation of internal hemorrhoids Endoscopist: Maikel Fields II, MD Referring physician: AMY Moss Date of Procedure: January 23, 2025 Equipment: Olympus [id number] adult colonoscope Sedation: MAC sedation Indication: Mrs. Milner is a 45-year-old female who is here for initial screening colonoscopy. The patient did have a colonoscopy many years ago. 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 She primarily has loose bowel movements. She does report postprandial bloating, gassiness and some cramps and abdominal discomfort. She will have occasional hemorrhoidal prolapse and infrequent bright red blood from hemorrhoids. She has had prior cholecystectomy. She reports no weight loss or family history of colon cancer. The examination is deemed medically necessary for screening colonoscopy. Procedure: Prior to the procedure, a history and physical exam was performed, and patient's medications and allergies were reviewed. The risks, benefits and alternatives of the sedation and procedure were discussed with the patient. All questions were answered and informed consent was obtained. The patient was brought to the procedure room. Patient identification and proposed procedure were verified by the physician and the nurse. The patient was placed in a left lateral decubitus position and the scope was passed under direct vision. Throughout the procedure, the patient's blood pressure, pulse, and oxygen saturations were monitored continuously. The colonoscopy was accomplished without difficulty. The patient tolerated the procedure well. Findings: On digital rectal examination there was normal rectal tone. There were no external hemorrhoids. The colonoscope was introduced through the anal canal to the rectum and advanced to the cecum. The ileocecal valve and appendiceal orifice were identified. The scope was advanced a short distance into the ileum which appeared grossly normal. The scope was then withdrawn into the colon. Cold biopsies were taken from the right colon to rule out microscopic colitis. The cecum, ascending, transverse, descending, sigmoid and rectum were grossly normal. There were no mucosal abnormalities identified. Upon retroflexion within the rectum there were grade 1-2 internal hemorrhoids. 3 columns of hemorrhoids were ablated/coagulated using monopolar ablation. The preparation was excellent throughout with [place] Preparation Score of 9. The cecal time was 12 minutes. Impression: 1. Normal colonoscopy with intubation of the terminal ileum 2. Grade 1-2 internal hemorrhoids status post monopolar ablation/coagulation Plan: The patient will not require screening/surveillance colonoscopy again for 10 years by ACS guidelines. I will follow-up the biopsies to rule out microscopic colitis. I would recommend bulking fiber (FiberCon by mouth every a.m.) and colestipol nightly. This should help with the diarrhea and bowel control.
--- NOTE | 2025-01-23 07:06 | P.PNANES_ITS ---
[facility] Disclaimer: The information contained in this section may have been updated after the patient was seen, as this information can be updated by other users. Medical History Seasonal allergies Hypertension GERD (gastroesophageal reflux disease) Anxiety Dysmenorrhea Surgical History S/P partial hysterectomy History of bladder surgery History of endometrial ablation History of cholecystectomy Hx of appendectomy History of LAVH Family History Other No significant family history Social History (Updated 01/23/25 @ 06:22 by Clemencia Chavez RN) Smoking Status: Never smoker second hand exposure: No alcohol intake: current alcohol intake frequency: holidays/special occasions only substance use type: denies use current occupational status: employed Travel in the last 8 weeks?: None household members: family housing: house current occupation: teacher current occupational exposures/hazards: No caffeine: Yes Have you lived/traveled outside US in past 30 days?: No Contact w/someone who lives/traveled outside US past 30 days?: No Exposure to someone with infectious disease in past 14 days?: No Do you have a fever (greater than 100.4 F or 38 C)?: No Have you tested positive for COVID-19?: No Exposed to someone with COVID-19 in past 14 days?: No Do you have a sore throat?: No Do you have a cough?: No Do you have any weakness?: No Are you experiencing any nausea/vomitting?: No Do you have any diarrhea?: No Are you experiencing any unusual bleeding?: No Do you have any muscle aches/pain?: No Do you have any abdominal pain?: No Are you experiencing loss of taste or smell?: No [facility] Anesthesia Checklist Patient Identification Patient Identification: Verbal (Name & ) Structural Data Admitted From: Home Planned Operative Procedure/s: lap le Consent for Planned Operative Procedure(s) Verified: Yes NPO Status Verified Time NPO: 00:00 Additional verifications Anesthesia Reactions: No Hx Blood Transfusions: No Blood Transfusion Reaction: No Airway Assessment Mallampati Score:: Class II C-Spine Mobility Assessed: Yes TMJ Mobility Assessed: Yes Dentition: Good Dentition Neurological Assessment Level of Consciousness: Awake, Alert and Appropriate Anesthesia Plan Anesthesia Risk discussed: Yes Anesthesia Plan: Verified ASA Class: II Anesthesia Type: MAC
[2025-01-23 07:59] VITALS: BP 109/82; PULSE 82; RESP 16; TEMP 36.9; O2SAT 98
[2025-01-23 08:05] VITALS: BP 108/79; PULSE 78; RESP 18; O2SAT 99
[2025-01-23 08:14] VITALS: BP 125/96; PULSE 81; RESP 18; O2SAT 98
[2025-01-23 08:25] VITALS: BP 121/83; PULSE 76; RESP 18; O2SAT 98
== END 2025-01-23 08:25 | disposition home or self-care (01) ==
PROVIDERS: PCP Nurse Practitioner Family; Visit Provider Internal Medicine Gastroenterology
PROC: 0DJD8ZZ Inspection of Lower Intestinal Tract, Via Natural or Artificial Opening Endoscopic (ICD-10-PCS; CPT 45378; principal; 2025-01-23 07:30)
DX: Z12.11 Encounter for screening for malignant neoplasm of colon (principal); K64.1 Second degree hemorrhoids; K58.0 Irritable bowel syndrome with diarrhea; I10 Essential (primary) hypertension; K21.9 Gastro-esophageal reflux disease without esophagitis; F41.9 Anxiety disorder, unspecified; Z79.899 Other long term (current) drug therapy; Z88.8 Allergy status to other drugs, medicaments and biological substances; Z91.048 Other nonmedicinal substance allergy status
CPT/HCPCS: 45380; 46930; J2003; J2704; J7120